=== PATIENT | female | born 1960 | race Caucasian/White ===

== ENCOUNTER 2019-11-04 15:12 | Emergency (ER) | payer OTHER ==
[~2019-11-04] VITALS: Ht 157.5 cm; Wt 59.9 kg
[2019-11-04] MEDS ORDERED: NAPROSYN500 MG PO (16:37)
[2019-11-04 17:07] VITALS: BP 125/67
== END 2019-11-04 17:08 | disposition home or self-care (01) ==
LOC: ER 15:12
DX: S16.1XXA Strain of muscle, fascia and tendon at neck level, initial encounter (principal); S39.012A Strain of muscle, fascia and tendon of lower back, initial encounter; S70.11XA Contusion of right thigh, initial encounter; S20.211A Contusion of right front wall of thorax, initial encounter; R51 Headache; F32.9 Major depressive disorder, single episode, unspecified; E03.9 Hypothyroidism, unspecified; V89.2XXA Person injured in unspecified motor-vehicle accident, traffic, initial encounter; Y93.89 Activity, other specified; Y92.488 Other paved roadways as the place of occurrence of the external cause; Y99.8 Other external cause status